=== PATIENT | male | born 1985 | race Caucasian/White ===

== ENCOUNTER 2017-02-27 09:15 | Emergency (ER) | payer OTHER ==
--- NOTE | 2017-02-27 10:05 | XRAY Preliminary Report ---
Exam: XR Ankle 3 View LT IMPRESSION: 1. Normal alignment without evidence for acute fracture or dislocation of the left ankle. 2. Asymmetric soft tissue swelling at the lateral aspect of the ankle. [facility] SITE ID: [id number]
--- NOTE | 2017-02-27 10:07 | XRAY Report ---
EXAM: LEFT ANKLE RADIOGRAPHY EXAM DATE: 02/27/2017 09:48 AM. CLINICAL HISTORY: Rolled ankle . COMPARISON: None. TECHNIQUE: 3 views. FINDINGS: Bones: No acute fracture line is seen. Corticated ossicle projecting inferior to the medial malleolus may represent accessory ossicle versus remote injury. Joints: Normal. No effusion. No subluxations. The ankle mortise is normally aligned. Soft Tissues: Mild soft tissue swelling at the lateral ankle. IMPRESSION: 1. Normal alignment without evidence for acute fracture or dislocation of the left ankle. 2. Asymmetric soft tissue swelling at the lateral aspect of the ankle. [facility] Referring Provider Line: [phone] SITE ID: [id number]
--- NOTE | 2017-02-27 11:01 | ED Physician Documentation ---
History of Present Illness - Stated complaint Stated Complaint: LEFT ANKLE INJ - Chief complaint Chief Complaint: Ext Problem - Additonal information Additional information: 31 male rolled ankle at work yesterday was able to walk yesterday but painful,and swollen now no other concerns L&I Review of Systems Musculoskeletal: reports: Pain with weight bearing PD PAST MEDICAL HISTORY - Present Medications Home Medications: Ambulatory Orders Medication Instructions Recorded Confirmed No Known Home Medications [No 02/27/17 02/27/17 Known Home Medications] - Allergies Allergies/Adverse Reactions: Allergies Allergy/AdvReac Type Severity Reaction Status Date / Time No Known Drug Allergies Allergy Verified 02/27/17 09:22 PD ED PE NORMAL - Vitals Vital signs reviewed: Yes - Extremities Extremities: Other (L michelle swollen, TTP giovani mall, no foot TTP, nl laxity, neg ant drawer, MSV intact) Results - Vitals Vitals: Vital Signs - 24 hr 02/27/17 09:21 Temperature 36.7 C Heart Rate 97 Respiratory 17 Rate Blood Pressure 136/87 H O2 Saturation 97 Oxygen O2 Source Room air Departure - Departure Disposition: 01 Home, Self Care Clinical Impression: Ankle sprain Qualifiers: Encounter type: initial encounter Involved ligament of ankle: unspecified ligament Laterality: left Qualified Code(s): S93.402A - Sprain of unspecified ligament of left ankle, initial encounter Condition: Good Instructions: ED Sprain Ankle W X Ray Follow-Up: [facility] [Provider Group] (for a recheck if not better in 2 weeks ) Comments: The xray is fine - no fracture is seen Wear the SHIRA, elevate and apply ice to keep the swelling down Motrin for pain Crutches as needed If not better in 2 weeks, please follow up with orthopedics for a recheck and consideration of further imaging And please follow up with your PMD to get your blood pressure rechecked - it was high today Forms: Activity restrictions
[2017-02-27] MEDS ORDERED: ACETAMINOPHEN 325 MG TABLET PO STA (11:16)
[2017-02-27] MEDS ORDERED: IBUPROFEN 400 MG TABLET PO STA (11:16)
[2017-02-27] MEDS ORDERED: IBUPROFEN 800 MG TABLET PO ONE (11:17)
[2017-02-27] MEDS ORDERED: ACETAMINOPHEN 325 MG TABLET PO ONE (11:18)
[2017-02-27 11:23] VITALS: BP 142/83
== END 2017-02-27 11:22 | disposition home or self-care (01) ==
LOC: ED 09:15
DX: S93.402A Sprain of unspecified ligament of left ankle, initial encounter (principal); X50.0XXA Overexertion from strenuous movement or load, initial encounter; Y99.0 Civilian activity done for income or pay
CPT/HCPCS: 73610; 99283; A9270